=== PATIENT | male | born 1975 | race Caucasian/White ===

== ENCOUNTER 2016-09-08 12:46 | Emergency (ER) | payer OTHER | END 2016-09-08 16:55 | disposition home or self-care (01) | LOC: ER1 12:46 | DX: R22.32 Localized swelling, mass and lump, left upper limb (principal); F17.200 Nicotine dependence, unspecified, uncomplicated | CPT/HCPCS: 93971; 99283 ==

== ENCOUNTER 2020-07-06 22:30 | Emergency (ER) | payer OTHER ==
[~2020-07-06 22:30] MED LIST: AUGMENTIN 875-1 EACH PO; NORCO 5-325 TA1 EACH PO
[2020-07-07 00:30] LABS: HEMOGLOBIN 14.3 gm/dl (14.0-17.5); RED BLOOD COUNT 4.88 M/UL (4.20-5.50); WHITE BLOOD COUNT 8.5 K/UL (4.5-11.0)
[2020-07-07 00:55] LABS: BUN/CREATININE RATIO 16 (0-10)
== END 2020-07-07 04:46 | disposition home or self-care (01) ==
LOC: ER1 22:30
DX: F14.10 Cocaine abuse, uncomplicated (principal); F19.10 Other psychoactive substance abuse, uncomplicated; F17.210 Nicotine dependence, cigarettes, uncomplicated
CPT/HCPCS: 80053; 80307; 85025; 99283

== ENCOUNTER 2021-09-23 10:08 | Emergency (ER) | payer OTHER ==
[2021-09-23] MEDS ORDERED: BACTRIM DS TAB1 EACH PO (12:01)
[2021-09-23] MEDS ORDERED: CEPHALEXIN500 MG PO (12:01)
== END 2021-09-23 12:41 | disposition home or self-care (01) ==
LOC: ER1 10:08
DX: L02.415 Cutaneous abscess of right lower limb (principal); M70.51 Other bursitis of knee, right knee; F17.210 Nicotine dependence, cigarettes, uncomplicated
CPT/HCPCS: 10060; 20610; 87070; 87077; 87186; 87205; 99283